=== PATIENT | male | born 1960 | race Caucasian/White ===

== ENCOUNTER → 2019-04-25 09:45 | Outpatient (BNVA) | payer BC, SELFPAY | PROVIDERS: Family Provider Family Medicine; PCP Family Medicine; Visit Provider Anesthesiology | DX: M54.5 Low back pain (principal); F17.210 Nicotine dependence, cigarettes, uncomplicated | CPT/HCPCS: 62323; 64483; J1040; J2001; J3490 ==

== ENCOUNTER → 2019-06-07 10:11 | Outpatient (BNVA) | payer BC, SELFPAY | PROVIDERS: Family Provider Family Medicine; PCP Family Medicine; Visit Provider Anesthesiology | DX: G89.29 Other chronic pain (principal); M51.17 Intervertebral disc disorders with radiculopathy, lumbosacral region; M54.2 Cervicalgia; M17.0 Bilateral primary osteoarthritis of knee; F17.210 Nicotine dependence, cigarettes, uncomplicated; Z79.891 Long term (current) use of opiate analgesic | CPT/HCPCS: 99214 ==

== ENCOUNTER 2019-12-18 08:17 | Day surgery (SDC) | payer BC, SELFPAY ==
[2019-12-18 08:38] VITALS: BMI 35.9
[2019-12-18] MEDS: sodium chloride 0.9% 1,000 ML 30 ML IV (08:52)
--- NOTE | 2019-12-18 09:09 | ANES.PREANE2 ---
Pre-Anesthetic Assessment Pre-Anesthetic Assessment: Height/Weight: Height 1.68 m Weight 101.151 kg Preop Diagnosis: History of colon polyps Proposed Procedure: Operation Date: 12/18/19 09:45 Proposed Procedures p Colonoscopy 12415 Z86.010(Not Applicable) - Neo Villarreal MD Familial anesthetic complications: None Last intake: Intake Last Liquid Date 12/17/19 Last Liquid Time 20:00 Last Solid Date 12/16/19 Last Solid Time 17:30 Social: Social History: Tobacco and No alcohol Exam: Pre-Anes Outpt Exam: alert, oriented x 3, clear to auscultation bilaterally and regular rate & rhythm Airway: Cervical ROM: WNL MP: 4 Dentition: Full Pulmonary: Pulmonary: None reported CV/HEM: CV/HEM: HTN GI: GI: GERD Metabolic: Metabolic: DM Musc/skel: Comments: slipped discs in lower back Neuropsych: Neuropsych: None reported Anesthetic Plan: ASA status: 2 Anesthesia: MAC Risk of > 500 ml blood loss (7ml/kg in children): No Meds/Allergies Current Medications: Current Medications Generic Name Dose Route Start Last Admin Trade Name Freq PRN Reason Stop Dose Admin Sodium Chloride 1,000 mls @ 30 ml s/hr 12/18/19 08:45 12/18/19 08:52 Sodium Chloride 0.9% IV 30 mls/hr .Q24H CHIVO Administration PFSH Anesthesia PFSH: Medical History (Updated 12/14/19 @ 16:21 by Neo Villarreal MD) Chronic neck and back pain Encounter for long-term opiate analgesic use Intervertebral disc disorders with radiculopathy, lumbar region Intervertebral disc disorders with radiculopathy, lumbosacral region Lumbar stenosis with neurogenic claudication NSAID long-term use Osteoarthritis Osteoarthritis of both knees Spondylolisthesis of lumbar region Surgical History S/P knee surgery RIGHT KNEE X 2, LEFT KNEE S/P vasectomy Family History Father Cancer LUNG CANCER Mother Heart disease Grandmother Cancer DIABETES INSIPIDUS Other Diabetes Denies family history of Anesthesia complication Bleeding disorder Social History Smoking and tobacco status: current every day smoker cigarettes Alcohol intake: never Household members: spouse Marital status: Current occupational status: employed History of recent travel: No Data Anesthesia Cardiac Studies: No Data to Display
[2019-12-18 09:23] LABS: Glucose Point of Care 118 mg/dL (70-110)
--- NOTE | 2019-12-18 10:11 | W.PM.OPSUD ---
Surgery/Procedure H&P Update DATE OF PROCEDURE: December 18, 2019 DATE H&P PERFORMED: 12/11/19 H&P UPDATE INFORMATION: I have reviewed H&P completed within last 30 days, I have examined patient prior to procedure and No changes to prior documentation PREOP DIAGNOSIS: History of colon polyps PRIMARY INDICATION FOR PROCEDURE: The same PLANNED PROCEDURE: Operation Date: 12/18/19 09:45 Proposed Procedures p Colonoscopy 75637 Z86.010(Not Applicable) - Neo Villarreal MD
[2019-12-18 10:32] VITALS: BP 116/74; PULSE 79; RESP 16; TEMP 36.3; O2SAT 96
--- NOTE | 2019-12-18 10:34 | ANE.PACU2 ---
Inpatient post-anesthesia follow up: Airway intact: Yes Vital signs: Temperature 97.4 F Pulse Rate 79 Respiratory Rate 16 Blood Pressure 116/74 Pulse Oximetry 96 Oxygen Delivery Me thod Nasal Cannula Oxygen Flow Rate 3 Fraction of Inspir ed Oxygen Hydration adequate: Yes Nausea and vomiting: No Mental status: Baseline
[2019-12-18 10:50] VITALS: BP 137/81; PULSE 76; RESP 18; O2SAT 97
== END 2019-12-18 10:53 | disposition home or self-care (01) ==
PROVIDERS: PCP Family Medicine; Visit Provider Surgery
PROC: 0DJD8ZZ Inspection of Lower Intestinal Tract, Via Natural or Artificial Opening Endoscopic (ICD-10-PCS; CPT 45378; principal; 2019-12-18 09:45)
DX: Z12.11 Encounter for screening for malignant neoplasm of colon (principal); D12.2 Benign neoplasm of ascending colon; I10 Essential (primary) hypertension; K21.9 Gastro-esophageal reflux disease without esophagitis; E11.9 Type 2 diabetes mellitus without complications; M51.17 Intervertebral disc disorders with radiculopathy, lumbosacral region; M51.16 Intervertebral disc disorders with radiculopathy, lumbar region; M17.0 Bilateral primary osteoarthritis of knee; M43.16 Spondylolisthesis, lumbar region; Z79.891 Long term (current) use of opiate analgesic; F17.210 Nicotine dependence, cigarettes, uncomplicated; G89.29 Other chronic pain; M54.9 Dorsalgia, unspecified; M54.2 Cervicalgia; Z71.6 Tobacco abuse counseling
CPT/HCPCS: 12345; 36416; 45380; 82962; 88305; 99214; J2704; J7030

== ENCOUNTER → 2022-08-02 15:11 | Outpatient (BNVA) | payer SELFPAY | PROVIDERS: PCP Family Medicine; Visit Provider Family Medicine | DX: E53.8 Deficiency of other specified B group vitamins (principal); Z13.220 Encounter for screening for lipoid disorders; E11.9 Type 2 diabetes mellitus without complications; Z51.81 Encounter for therapeutic drug level monitoring | CPT/HCPCS: 80053; 80061; 82607; 83036; 85025 ==

== ENCOUNTER → 2024-01-17 13:23 | Outpatient (BNVA) | payer OTHER, SELFPAY | PROVIDERS: PCP Family Medicine; Visit Provider Surgery | DX: Z12.11 Encounter for screening for malignant neoplasm of colon (principal) | CPT/HCPCS: 99204 ==

== ENCOUNTER 2024-02-08 07:52 | Day surgery (SDC) | payer OTHER, SELFPAY ==
[2024-02-08 08:07] VITALS: BP 138/86; PULSE 82; RESP 18; TEMP 36.1; O2SAT 96; BMI 35.9
[2024-02-08] MEDS: sodium chloride 0.9% 1,000 ML 30 ML IV (08:12)
[2024-02-08 08:14] LABS: Glucose Point of Care 127 mg/dL (70-110)
--- NOTE | 2024-02-08 08:26 | ANES.PREANE2 ---
Pre-Anesthetic Assessment Height/Weight: Height 1.68 m Weight 101.151 kg Temp Pulse Resp BP Pulse Ox O2 Del Method 97 F L 82 18 138/86 96 Room Air 02/08/24 08:07 02/08/24 08:07 02/08/24 08:07 02/08/24 08:07 02/08/24 08:07 02/08/24 08:07 Preop Diagnosis: recurring polyps Operation Date: 02/08/24 09:15 Proposed Procedures p Colonoscopy - 85076, g0105, z12.11(Not Applicable) - Freddy Melgoza MD Familial anesthetic complications: none Was Beta Cody taken within 24 hours: N/A Was Clonidine taken within 24 hours: N/A Last intake: Intake Last Liquid Date 02/07/24 Last Liquid Time 20:00 Last Solid Date 02/06/24 Last Solid Time 17:00 Social No alcohol and No tobacco Exam alert, oriented x 3, clear to auscultation bilaterally and regular rate & rhythm Airway Submandibular: within normal limits Cervical ROM: within normal limits Mallampati: Class II Dentition: full History/ROS No significant history except as noted Pulmonary None reported CV/HEM Hypertension None reported Hepatic None reported GI None reported Metabolic Diabetes Mellitus NIDDM [facility] Lower Back Pain Neuropsych None reported Anesthetic Plan ASA status: 3 Anesthesia: MAC Risk of > 500 ml blood loss (7ml/kg in children): No Medications/Allergies Home Medications Medication Instructions Recorded Confirmed Last Taken Type cholecalciferol (vitamin D3) 25 1,000 unit PO DAILY 04/18/19 02/06/24 02/07/24 History mcg (1,000 unit) capsule metformin 850 mg tablet 850 mg PO BID 04/18/19 02/06/24 02/07/24 History ezetimibe 10 mg tablet (Zetia) 10 mg PO DAILY 02/06/24 02/06/24 02/07/24 History gabapentin 100 mg capsule See Rx Instructions .Route .COMPLEX 02/06/24 02/06/24 02/07/24 History glipizide 5 mg tablet 5 mg PO DAILY 02/06/24 02/06/24 02/07/24 History valsartan 40 mg tablet 40 mg PO DAILY 02/06/24 02/06/24 02/07/24 History Allergies Allergy/AdvReac Type Severity Reaction Status Date / Time rosuvastatin [From Crestor] Allergy Unknown unknown Verified 02/06/24 11:37 varenicline [From Chantix] Allergy Unknown unknown Verified 02/06/24 11:37 Current Medications Generic Name Dose Route Start Last Admin Trade Name Freq PRN Reason Stop Dose Admin Sodium Chloride 1,000 mls @ 30 mls/hr 02/08/24 08:00 02/08/24 08:12 Sodium Chloride 0.9% IV 30 mls/hr .Q24H CHIVO Administration PFSH Anesthesia Medical History Diabetes mellitus Smoker unmotivated to quit Encounter for long-term opiate analgesic use Intervertebral disc disorders with radiculopathy, lumbosacral region NSAID long-term use Osteoarthritis of both knees Chronic neck and back pain Intervertebral disc disorders with radiculopathy, lumbar region Lumbar stenosis with neurogenic claudication Osteoarthritis Spondylolisthesis of lumbar region Surgical History History of colonoscopy (~11/2019) dr. thompson/[facility] [place] S/P vasectomy S/P knee surgery RIGHT KNEE X 2, LEFT KNEE Family History Father Cancer LUNG CANCER Mother Heart disease Grandmother Cancer DIABETES INSIPIDUS Other Diabetes Denies family history of Anesthesia complication Bleeding disorder Social History Smoking and tobacco/nicotine status: former use of tobacco/nicotine Alcohol intake: never Substance/Drug Use: never Household members: spouse Marital status: Current occupational status: employed Data Anesthesia Cardiac Studies: No Data to Display
--- NOTE | 2024-02-08 08:34 | W.PM.OPSUD ---
Surgery/Procedure H&P Update DATE OF PROCEDURE: February 08, 2024 DATE H&P PERFORMED: 01/17/24 H&P UPDATE INFORMATION: I have reviewed H&P completed within last 30 days, I have examined patient prior to procedure, No changes to prior documentation and H&P is in [facility] EMR on date indicated PREOP DIAGNOSIS: recurring polyps PLANNED PROCEDURE: Operation Date: 02/08/24 09:15 Proposed Procedures p Colonoscopy - 19316, g0105, z12.11(Not Applicable) - Freddy Melgoza MD
[2024-02-08 09:36] VITALS: BP 97/62; PULSE 61; RESP 18; TEMP 36.1; O2SAT 96
[2024-02-08 09:51] VITALS: BP 124/80; PULSE 63; RESP 18; O2SAT 96
--- NOTE | 2024-02-08 10:08 | ANE.PACU2 ---
Inpatient post-anesthesia follow up: Vital signs: Temperature 97.0 F Pulse Rate 63 Respiratory Rate 18 Blood Pressure 124/80 Pulse Oximetry 96 Oxygen Delivery Me thod Room Air Oxygen Flow Rate Fraction of Inspir ed Oxygen
== END 2024-02-08 10:08 | disposition home or self-care (01) ==
PROVIDERS: PCP Family Medicine; Visit Provider Surgery
PROC: 0DJD8ZZ Inspection of Lower Intestinal Tract, Via Natural or Artificial Opening Endoscopic (ICD-10-PCS; CPT 45378; principal; 2024-02-08 09:15)
DX: Z12.11 Encounter for screening for malignant neoplasm of colon (principal); Z86.0100 Personal history of colon polyps, unspecified; D12.2 Benign neoplasm of ascending colon; D12.3 Benign neoplasm of transverse colon; K62.1 Rectal polyp; K57.30 Diverticulosis of large intestine without perforation or abscess without bleeding; I10 Essential (primary) hypertension; E11.9 Type 2 diabetes mellitus without complications; Z87.891 Personal history of nicotine dependence; Z79.84 Long term (current) use of oral hypoglycemic drugs
CPT/HCPCS: 36416; 45380; 45385; 82962; 88305; J2704; J7030

== ENCOUNTER → 2024-02-21 14:07 | Outpatient (BNVA) | payer OTHER, SELFPAY | PROVIDERS: PCP Family Medicine; Visit Provider Surgery | DX: Z09 Encounter for follow-up examination after completed treatment for conditions other than malignant neoplasm (principal) | CPT/HCPCS: 99213 ==

== ENCOUNTER → 2024-05-09 14:35 | Outpatient (BNVA) | payer OTHER, SELFPAY | PROVIDERS: PCP Family Medicine; Visit Provider Nurse Practitioner Family | DX: D22.5 Melanocytic nevi of trunk (principal); L91.8 Other hypertrophic disorders of the skin; L81.4 Other melanin hyperpigmentation; Z08 Encounter for follow-up examination after completed treatment for malignant neoplasm; Z95.828 Presence of other vascular implants and grafts; L57.0 Actinic keratosis | CPT/HCPCS: 17000; 99213 ==

== ENCOUNTER → 2024-09-23 14:29 | Outpatient (BNVA) | payer OTHER, SELFPAY | PROVIDERS: PCP Family Medicine; Visit Provider Anesthesiology Pain Medicine | DX: M54.9 Dorsalgia, unspecified (principal); M47.816 Spondylosis without myelopathy or radiculopathy, lumbar region | CPT/HCPCS: 99204 ==

== ENCOUNTER 2024-10-17 13:57 | Outpatient (RCR) | payer OTHER, SELFPAY | END 2024-10-21 23:59 | disposition home or self-care (01) | LOC: SPT 13:57 | PROVIDERS: Visit Provider Family Medicine | DX: M25.569 Pain in unspecified knee (principal) | CPT/HCPCS: 97110; 97161 ==

== ENCOUNTER 2024-10-22 05:00 | Outpatient (RCR) | payer OTHER, SELFPAY | END 2024-11-21 23:59 | disposition home or self-care (01) | LOC: SPT 05:00 | PROVIDERS: Visit Provider Family Medicine | DX: M25.569 Pain in unspecified knee (principal) | CPT/HCPCS: 97110 ==

== ENCOUNTER 2024-11-22 05:00 | Outpatient (RCR) | payer OTHER, SELFPAY | END 2024-12-22 23:59 | disposition home or self-care (01) | LOC: SPT 05:00 | PROVIDERS: Visit Provider Family Medicine | DX: M25.569 Pain in unspecified knee (principal) | CPT/HCPCS: 97110 ==

== ENCOUNTER 2024-12-23 06:30 | Outpatient (RCR) | payer OTHER, SELFPAY | END 2025-01-02 08:05 | disposition home or self-care (01) | LOC: SPT 06:30 | PROVIDERS: PCP Family Medicine; Visit Provider Family Medicine | DX: M25.569 Pain in unspecified knee (principal) | CPT/HCPCS: 97110 ==

== ENCOUNTER → 2024-12-30 14:28 | Outpatient (BNVA) | payer OTHER, SELFPAY | PROVIDERS: PCP Family Medicine; Visit Provider Anesthesiology Pain Medicine | DX: M54.9 Dorsalgia, unspecified (principal); M47.816 Spondylosis without myelopathy or radiculopathy, lumbar region | CPT/HCPCS: 99214 ==

== ENCOUNTER → 2025-01-14 14:26 | Outpatient (BNVA) | payer OTHER, SELFPAY | PROVIDERS: PCP Family Medicine; Visit Provider Anesthesiology Pain Medicine | DX: M47.816 Spondylosis without myelopathy or radiculopathy, lumbar region (principal) | CPT/HCPCS: 64635; 64636; J1100; J9999 ==

== ENCOUNTER → 2025-02-20 09:23 | Outpatient (BNVA) | payer OTHER, SELFPAY | PROVIDERS: PCP Family Medicine; Visit Provider Nurse Practitioner Family | DX: L21.8 Other seborrheic dermatitis (principal); L72.0 Epidermal cyst; L82.1 Other seborrheic keratosis; L81.4 Other melanin hyperpigmentation; Z08 Encounter for follow-up examination after completed treatment for malignant neoplasm; Z85.828 Personal history of other malignant neoplasm of skin | CPT/HCPCS: 99213 ==